=== PATIENT | male | born 1975 | race African-American/Black ===

== ENCOUNTER 2022-06-09 23:49 | Emergency (ER) | payer SELFPAY ==
[2022-06-09 23:53] VITALS: BP 105/68; PULSE 74; RESP 18; TEMP 98.1; BMI 25.0
[2022-06-10] MEDS ORDERED: IBUPROFEN 600 MG TABLET (FP) PO ONE (00:27)
[2022-06-10] MEDS ORDERED: DEXAMETHASONE LIQUID 0.5 MG/5 ML PO ONE (00:27)
[2022-06-10] MEDS ORDERED: DEXAMETHASONE SOD PHOSPHATE 10 MG/1 ML VIAL PO ONE (00:27)
[2022-06-10 01:36] LABS: THROAT:GRP A STREP NOT DETECTED (NOTDETECTED)
== END 2022-06-10 01:13 | disposition home or self-care (01) ==
LOC: JER 23:49
DX: R07.0 Pain in throat (principal); J06.9 Acute upper respiratory infection, unspecified
CPT/HCPCS: 0241U-QW; 87651; 99283-25; J1100